=== PATIENT | female | born 1980 | race Caucasian/White ===

== ENCOUNTER 2017-10-21 10:19 | Emergency (ER) | payer OTHER ==
[~2017-10-21] VITALS: Ht 144.8 cm; Wt 49.9 kg
[2017-10-21] MEDS ORDERED: PROP10 PO (10:33)
[2017-10-21] MEDS ORDERED: BUSP15 PO (10:33)
[2017-10-21] MEDS ORDERED: VENL150ER PO (10:33)
[2017-10-21] MEDS ORDERED: OMEPRAZOLE MAGN20 MG PO (10:34)
[2017-10-21] MEDS ORDERED: QVAR REDIHALE10.6 G1 INH (10:34)
[2017-10-21] MEDS ORDERED: QUET25 PO (10:35)
[2017-10-21] MEDS ORDERED: TRAZ150T57 PO (10:36)
== END 2017-10-21 12:25 | disposition home or self-care (01) ==
LOC: ER 10:19
DX: G43.909 Migraine, unspecified, not intractable, without status migrainosus (principal); Z79.899 Other long term (current) drug therapy; F32.9 Major depressive disorder, single episode, unspecified
CPT/HCPCS: 96372; 99283; J0780; J1885